=== PATIENT | female | born 1960 | race Caucasian/White ===

== ENCOUNTER 2016-11-25 16:28 | Inpatient (IN) | payer OTHER ==
[~2016-11-25] VITALS: Ht 157.5 cm; Wt 68.9 kg
[2016-11-25] MEDS ORDERED: fentaNYL INJECTION 100 MCG/2 ML AMP IVP STA ×2 (16:38→17:21)
[2016-11-25 16:43] LABS: BASOPHILS % (AUTO) 1 % (0-10); EOSINOPHILS # (AUTO) 0.1 10^3/uL (0.0-0.3); EOSINOPHILS % (AUTO) 1 % (0-10); LYMPHOCYTES # (AUTO) 3.2 X 10^3 (1.0-4.0); LYMPHOCYTES % (AUTO) 45 % (12-44); MEAN CORPUSCULAR HEMOGLOBIN 29 PG (25-34); MEAN CORPUSCULAR HGB CONC 34 G/DL (32-36); MEAN CORPUSCULAR VOLUME 84 FL (80-99); MONOCYTES # (AUTO) 0.5 X 10^3 (0.0-1.0); MONOCYTES % (AUTO) 7 % (0-12); NEUTROPHILS # (AUTO) 3.3 X 10^3 (1.8-7.8); NEUTROPHILS % (AUTO) 46 % (42-75); PLATELET COUNT 314 10^3/uL (130-400); RED BLOOD COUNT 5.06 10^6/uL (4.35-5.85); RED CELL DISTRIBUTION WIDTH 12.7 % (10.0-14.5); WHITE BLOOD COUNT 7.2 10^3/uL (4.3-11.0)
[2016-11-25 17:02] LABS: ALANINE AMINOTRANSFERASE 52 U/L (0-55); ALBUMIN 4.3 GM/DL (3.2-4.5); ANION GAP 16 MMOL/L (5-14); ASPARTATE AMINO TRANSFERASE 39 U/L (5-34); BILIRUBIN,TOTAL 0.4 MG/DL (0.1-1.0); BLOOD UREA NITROGEN 14 MG/DL (7-18); BUN/CREATININE RATIO 16; CALCIUM 9.8 MG/DL (8.5-10.1); CARBON DIOXIDE 19 MMOL/L (21-32); CHLORIDE 103 MMOL/L (98-107); CREATININE SERUM 0.86 MG/DL (0.60-1.30); GFR ESTIMATED > 60; GLUCOSE 383 MG/DL (70-105); POTASSIUM 4.5 MMOL/L (3.6-5.0); SODIUM 138 MMOL/L (135-145); TOTAL PROTEIN 7.3 GM/DL (6.4-8.2)
--- NOTE | 2016-11-25 17:06 | ED Fall/Injury ---
General Chief Complaint: Trauma-Non Activation Stated Complaint: FALL Nursing Triage Note: PT TO ED VIA EMS. PT WAS WORKING ON HOUSE WHEN SHE STEPPED ONTO THE PORCH, FALLING THROUGH. DEFORMITY NOTED TO LLE. PT DENIES HITTING HEAD. DENIES ANY OTHER INJURY. PT RECIEVED 100MCG FENTANYL AND 4 MG ZOFRAN PER EMS. BS 399 PER EMS. Source: patient, EMS Exam Limitations: no limitations (DARYL HAAS MD) History of Present Illness Time seen by provider: 16:27 Initial Comments Here by EMS with report of fall through a porch. She was working on a house that they own here in [place] when she was walking across the back porch carrying wood. She apparently felt through the porch and has an angulated deformity of the distal right lower extremity just above the ankle. Denies other injury. Tetanus is not up-to-date. EMS did initiate IV and gave 100 g of fentanyl for pain. Leg is splinted with a blanket splint. Location Injury Occurred: HOME Occurred: just prior to arrival (approximately 30 minutes ago) Severity: moderate Injuries/Pain Location: lower extremity Context: other Loss of Consciousness: no loss of consciousness Modifying Factors: Improves With Immobilization, Worse With Movement, Improves With Pain Medication Associated Symptoms (Fall): No Neck Pain, Trouble Walking (DARYL HAAS MD) Allergies and Home Medications Allergies Coded Allergies: codeine (Verified Allergy, Unknown, 11/25/16) erythromycin base (Verified Allergy, Unknown, 11/25/16) Home Medications Albuterol Sulfate 2.5 Mg/3 Ml Vial.neb, 2.5 INH INH TID, #150 (Reported) Apixaban 2.5 Mg Tablet, 2.5 MG PO BID for 14 Days Prescribed by: PAOLA MCNAMARA on 11/27/16 0930 Atorvastatin Calcium 10 Mg Tablet, 10 MG PO DAILY, #30 (Reported) Glimepiride 4 Mg Tablet, 4 MG PO DAILY, #30 (Reported) Hydrocodone/Acetaminophen 1 Each Tablet, 1-2 EA PO Q4H PRN for PAIN-MODERATE, # 56 Ref 0 Prescribed by: PAOLA MCNAMARA on 11/27/16 0930 Insulin Glargine,Hum.rec.anlog 100 Unit/1 Ml Insuln.pen, 10 UNITS SQ HS, #15 ( Reported) Lisinopril 10 Mg Tablet, 10 MG PO DAILY, #30 (Reported) Metformin HCl 1,000 Mg Tablet, 1,000 MG PO BID, #60 (Reported) Mometasone/Formoterol 13 Gm Hfa.aer.ad, 2 INH IH BID, #13 (Reported) Montelukast Sodium 10 Mg Tablet, 10 MG PO DAILY, #30 (Reported) Tramadol HCl 50 Mg Tablet, 50 MG PO Q6H PRN for PAIN-BREAKTHROUGH, #90 Ref 0 Take 1-2 PO q 6 hrs prn pain Prescribed by: PAOLA MCNAMARA on 11/27/16 0930 Constitutional: see HPI, No chills, No fever Eyes: No Symptoms Reported Ears, Nose, Mouth, Throat: no symptoms reported Respiratory: no symptoms reported Cardiovascular: no symptoms reported Gastrointestinal: no symptoms reported Genitourinary: no symptoms reported Musculoskeletal: see HPI, joint pain, muscle pain Skin: No change in color, lesions (abrasion to right knee) Psychiatric/Neurological: No Symptoms Reported, Denies Numbness, Denies Tingling, Denies Weakness (DARYL HAAS MD) Past Pjyvdgk-Nsnagw-Scwizl Hx Patient Social History Alcohol Use: Denies Use Recreational Drug Use: No Smoking Status: Never a Smoker Recent Foreign Travel: No Contact w/Someone Who Travel: No Recent Infectious Disease Expo: No Recent Hopitalizations: No (DARYL HAAS MD) Immunizations Up To Date Tetanus Booster (TDap): Unknown (DARYL HAAS MD) Surgeries HX Surgeries: Yes Surgeries: Section (DARYL HAAS MD) Respiratory Hx Respiratory Disorders: Yes Respiratory Disorders: Asthma (DARYL HAAS MD) Cardiovascular Hx Cardiac Disorders: No (DARYL HAAS MD) Neurological Hx Neurological Disorders: No Neurological Disorders: Stroke (DARYL HAAS MD) Genitourinary Hx Genitourinary Disorders: No (DARYL HAAS MD) Gastrointestinal Hx Gastrointestinal Disorders: No (DARYL HAAS MD) Musculoskeletal Hx Musculoskeletal Disorders: No (DARYL HAAS MD) Endocrine Hx Endocrine Disorders: Yes Endocrine Disorders: Diabetes, Non-Insulin dep (DARYL HAAS MD) HEENT HX ENT Disorders: No (DARYL HAAS MD) Cancer Hx Cancer: No (DARYL HAAS MD) Reviewed Nursing Assessment Reviewed/Agree w Nursing PMH: Yes (DARYL HAAS MD) Family Medical History Significant Family History: No Pertinent Family Hx (DARYL HAAS MD) Physical Exam Vital Signs Vital Sign - Last 12Hours 11/25/16 16:32 Pulse 86 Resp 22 B/P (MAP) 122/96 Pulse Ox 96 O2 Delivery Room Air (MYRNA SANTILLAN MD) Vital Signs Capillary Refill : Less Than 3 Seconds (DARYL HAAS MD) General Appearance: WD/WN, no apparent distress HEENT: PERRL/EOMI, pharynx normal Neck: full range of motion, supple Cardiovascular: regular rate, rhythm, no murmur Respiratory: lungs clear, normal breath sounds Gastrointestinal: non tender, soft Back: normal inspection, no CVA tenderness, no vertebral tenderness Extremities: pelvis stable, other (swelling and deformity to the distal right lower extremity just proximal to the ankle. Distal circulation and sensation intact. Able to move all toes on the right foot.) Neurologic/Psychiatric: alert, oriented x 3 Skin: normal color, warm/dry (DARYL HAAS MD) [place] Coma Score Best Eye Response: (4) Open Spontaneously Best Verbal Response: (5) Oriented Best Motor Response: (6) Obeys Commands (DARYL HAAS MD) Splinting and Joint Reduction : Location: right ankle Pre-Proc Neuro Vasc Exam: normal Post-Proc Neuro Vasc Exam: normal Onesimo wrap: Yes (to secure orthoglass) Hand-Made Type: orthoglass Splint Application: Short Leg (sugar tong) (CANDIE MARTE) Progress/Results/Core Measures Results/Orders Lab Results Laboratory Tests Test 11/25/16 16:35 Range/Units White Blood Count 7.2 4.3-11.0 10^3/uL Red Blood Count 5.06 4.35-5.85 10^6/uL Hemoglobin 14.5 11.5-16.0 G/DL Hematocrit 42 35-52 % Mean Corpuscular Volume 84 80-99 FL Mean Corpuscular Hemoglobin 29 25-34 PG Mean Corpuscular Hemoglobin Concent 34 32-36 G/DL Red Cell Distribution Width 12.7 10.0-14.5 % Platelet Count 314 130-400 10^3/uL Mean Platelet Volume 10.0 7.4-10.4 FL Neutrophils (%) (Auto) 46 42-75 % Lymphocytes (%) (Auto) 45 H 12-44 % Monocytes (%) (Auto) 7 0-12 % Eosinophils (%) (Auto) 1 0-10 % Basophils (%) (Auto) 1 0-10 % Neutrophils # (Auto) 3.3 1.8-7.8 X 10^3 Lymphocytes # (Auto) 3.2 1.0-4.0 X 10^3 Monocytes # (Auto) 0.5 0.0-1.0 X 10^3 Eosinophils # (Auto) 0.1 0.0-0.3 10^3/uL Basophils # (Auto) 0.0 0.0-0.1 10^3/uL Sodium Level 138 135-145 MMOL/L Potassium Level 4.5 3.6-5.0 MMOL/L Chloride Level 103 98-107 MMOL/L Carbon Dioxide Level 19 L 21-32 MMOL/L Anion Gap 16 H 5-14 MMOL/L Blood Urea Nitrogen 14 7-18 MG/DL Creatinine 0.86 0.60-1.30 MG/DL Estimat Glomerular Filtration Rate > 60 BUN/Creatinine Ratio 16 Glucose Level 383 H 70-105 MG/DL Calcium Level 9.8 8.5-10.1 MG/DL Total Bilirubin 0.4 0.1-1.0 MG/DL Aspartate Amino Transf (AST/SGOT) 39 H 5-34 U/L Alanine Aminotransferase (ALT/SGPT) 52 0-55 U/L Alkaline Phosphatase 90 40-136 U/L Total Protein 7.3 6.4-8.2 GM/DL Albumin 4.3 3.2-4.5 GM/DL (MYRNA SANTILLAN MD) Vital Signs/I&O Vital Sign - Last 12Hours 11/25/16 16:32 Pulse 86 Resp 22 B/P (MAP) 122/96 Pulse Ox 96 O2 Delivery Room Air (MYRNA SANTILLAN MD) Blood Pressure Mean: 105 Progress Note : Progress Note Seen and evaluated on arrival by EMS. IV established by EMS. Labs, x-ray right lower extremity and fentanyl 50 g IV ordered. Monitor patient. 1710 x- rays noted. Case discussed with Dr. Santillan. He is actually in route to this facility now and will see the patient and approximately 20 minutes. This was discussed with the patient and she was very appreciative. She is having return of pain. Fentanyl 50 g IV ordered. Her last by mouth intake was at 1330 today. 1725: Dr. Santillan called back. He has requested vancomycin 1 g IV and Ancef 2 g IV and consent for open reduction internal fixation of the right tib- fib. He will be here in just a few minutes. Patient informed and agrees and is appreciative. Patient is from [facility] and is appreciative that the orthopedic physician is with [address] 1730: Dr. Santillan called back. They do not have the equipment needed for the surgery tonight so he will take her to the OR tomorrow. He will admit the patient. The request medicine consult. This was placed. Dr. Denson accepts consult and request cardiology consult and this was placed. Dr. Lomeli accepts cardiology consult. Patient more comfortable now. We did hold the antibiotics until tomorrow. Admit, inpatient status. Patient and family agree with plan. (DARYL HAAS MD) Diagnostic Imaging Diagonstic Imaging: Xray Plain Films/CT/US/NM/MRI: leg Comments VIA [facility]. [place], [place] NAME: ROBERTO CARTAGENA [facility] REC#: [id number] PT STATUS: REG ER : 1960 PHYSICIAN: DARYL HAAS MD ADMIT DATE: 11/25/16/ER Draft Date of Exam:11/25/16 TIBIA/FIBULA, RIGHT, 2 VIEWS INDICATION: Fall. Injury. COMPARISON: None. EXAMINATION: Four radiographic views of the right tibia and fibula were obtained. FINDINGS: Severely comminuted acute fractures of the distal tibia and fibula. There is mild displacement of the fracture fragments. There is also mild abnormal lateral angulation of approximately 30 degrees. There is no appreciable intra-articular extension. Included portions of distal femur are intact. The knee joint is maintained. No unexpected radiopaque foreign bodies are seen. IMPRESSION: Acute mildly displaced severely comminuted fractures of the distal right tibia and fibula. Dictated on workstation # [id number] Dict: 11/25/16 1704 Trans: 11/25/16 1708 [facility] [id number] Interpreted by: PRETTY LUCAS Electronically signed by: Reviewed: Reviewed by Me (DARYL HAAS MD) Departure Communication Time/Spoke to Admitting Phy: 17:10 Time/Spoke to Consulting Physi: 17:32 (DARYL HAAS MD) Impression Impression: Primary Impression: Fracture of right tibia and fibula Qualified Codes: S82.201A - Unspecified fracture of shaft of right tibia, initial encounter for closed fracture; S82.401A - Unspecified fracture of shaft of right fibula, initial encounter for closed fracture Disposition: ADMITTED INPATIENT Condition: Stable Admissions Decision to Admit Reason: Admit from ER (Trauma) Decision to Admit/Date: Nov 25, 2016 Time/Decision to Admit Time: 17:30 (DARYL HAAS MD) Departure-Patient Inst. Referrals: NO,LOCAL PHYSICIAN (PCP/Family) Primary Care Physician Scripts Tramadol HCl (Tramadol HCl) 50 Mg Tablet 50 MG PO Q6H Y for PAIN-BREAKTHROUGH, #90 TAB 0 Refills Take 1-2 PO q 6 hrs prn pain Prov: PAOLA MCNAMARA 11/27/16 Hydrocodone/Acetaminophen (Hydrocodon-Acetaminophn 10-325) 1 Each Tablet 1-2 EA PO Q4H Y for PAIN-MODERATE, #56 TAB 0 Refills Prov: PAOLA MCNAMARA 11/27/16 Apixaban (Eliquis) 2.5 Mg Tablet 2.5 MG PO BID for 14 Days, TAB Prov: PAOLA MCNAMARA 11/27/16 DARYL HAAS MD Nov 25, 2016 17:06 MYRNA SANTILLAN MD Nov 25, 2016 18:03 CANDIE MARTE Nov 28, 2016 12:27
--- NOTE | 2016-11-25 17:09 | Diagnostic Imaging Report ---
INDICATION: Fall. Injury. COMPARISON: None. EXAMINATION: Four radiographic views of the right tibia and fibula were obtained. FINDINGS: Severely comminuted acute fractures of the distal tibia and fibula. There is mild displacement of the fracture fragments. There is also mild abnormal lateral angulation of approximately 30 degrees. There is no appreciable intra-articular extension. Included portions of distal femur are intact. The knee joint is maintained. No unexpected radiopaque foreign bodies are seen. IMPRESSION: Acute mildly displaced severely comminuted fractures of the distal right tibia and fibula. Dictated by: Dictated on workstation # [id number]
[2016-11-25] MEDS ORDERED: ceFAZolin 2 GM/50 ML NS 50 ML IV ONE (17:30)
[2016-11-25] MEDS ORDERED: VANCOMYCIN INJECTION 1,000 MG in NS (IVPB) 250 ML IV ONE (17:30)
[2016-11-25] MEDS ORDERED: inSUlin (REGULAR) HUMAN 1 UNIT/0.01 ML (CHARGE PER UNIT) IV STA (17:39)
[2016-11-25] MEDS ORDERED: morphine INJ 10 MG/ML 1ML (SYR OR VIAL) IVP STA (17:50)
[2016-11-25 20:00] VITALS: BP 139/79
[2016-11-25] MEDS: NS IV 1000 ML 1,000 ML IV SCH (20:26)
[2016-11-25] MEDS: morphine INJ 10 MG/ML 1ML (SYR OR VIAL) IVP PRN ×2 (20:29→23:37)
[2016-11-25] MEDS ORDERED: MEPERIDINE (DEMEROL) INJ 100 MG/ML IVP PRN (21:30)
[2016-11-25] MEDS ORDERED: PROMETHAZINE INJ 25 MG/ML (PHENERGAN) AMP IM PRN (21:30)
[2016-11-25] MEDS ORDERED: MEPERIDINE (DEMEROL) INJ 100 MG/ML IM PRN (22:30)
[2016-11-26] VITALS (7 sets, daily range): BP systolic 119–148; BP diastolic 68–80
[2016-11-26] MEDS: morphine INJ 10 MG/ML 1ML (SYR OR VIAL) IVP PRN ×3 (05:39→09:42)
[2016-11-26] MEDS: NS IV 1000 ML 1,000 ML IV SCH (05:39)
[2016-11-26 06:40] LABS: BASOPHILS % (AUTO) 0 % (0-10); EOSINOPHILS # (AUTO) 0.1 10^3/uL (0.0-0.3); EOSINOPHILS % (AUTO) 1 % (0-10); LYMPHOCYTES # (AUTO) 3.6 X 10^3 (1.0-4.0); LYMPHOCYTES % (AUTO) 40 % (12-44); MEAN CORPUSCULAR HEMOGLOBIN 29 PG (25-34); MEAN CORPUSCULAR HGB CONC 33 G/DL (32-36); MEAN CORPUSCULAR VOLUME 86 FL (80-99); MEAN PLATELET VOLUME 9.6 FL (7.4-10.4); MONOCYTES # (AUTO) 0.6 X 10^3 (0.0-1.0); MONOCYTES % (AUTO) 7 % (0-12); NEUTROPHILS # (AUTO) 4.8 X 10^3 (1.8-7.8); NEUTROPHILS % (AUTO) 52 % (42-75); PLATELET COUNT 284 10^3/uL (130-400); RED BLOOD COUNT 4.49 10^6/uL (4.35-5.85); RED CELL DISTRIBUTION WIDTH 12.7 % (10.0-14.5); WHITE BLOOD COUNT 9.1 10^3/uL (4.3-11.0)
[2016-11-26 07:03] LABS: ALANINE AMINOTRANSFERASE 43 U/L (0-55); ALBUMIN 3.7 GM/DL (3.2-4.5); ANION GAP 11 MMOL/L (5-14); ASPARTATE AMINO TRANSFERASE 33 U/L (5-34); BILIRUBIN,TOTAL 0.6 MG/DL (0.1-1.0); BLOOD UREA NITROGEN 13 MG/DL (7-18); BUN/CREATININE RATIO 20; CALCIUM 8.9 MG/DL (8.5-10.1); CARBON DIOXIDE 21 MMOL/L (21-32); CHLORIDE 106 MMOL/L (98-107); CREATININE SERUM 0.65 MG/DL (0.60-1.30); GFR ESTIMATED > 60; GLUCOSE 103 MG/DL (70-105); POTASSIUM 4.1 MMOL/L (3.6-5.0); SODIUM 138 MMOL/L (135-145); TOTAL PROTEIN 6.3 GM/DL (6.4-8.2)
[2016-11-26] MEDS ORDERED: LACTATED RINGERS 1,000 ML IV ONE (07:20)
[2016-11-26] MEDS ORDERED: proPOfol 200 MG/20 ML (DIPRIVAN) VIAL IV ONE (07:20)
[2016-11-26] MEDS ORDERED: ROCURONIUM 50 MG/5 ML (ZEMURON) VIAL IV ONE (07:20)
[2016-11-26] MEDS ORDERED: LIDOCAINE PF 2% 5 ML (XYLOCAINE) VIAL ONE (07:20)
[2016-11-26] MEDS ORDERED: MIDAZOLAM 2 MG/2 ML (VERSED) VIAL ONE (07:21)
[2016-11-26] MEDS ORDERED: fentaNYL INJECTION 250 MCG/5 ML AMP ONE (07:21)
[2016-11-26] MEDS ORDERED: ceFAZolin 1,000 MG (ANCEF) VIAL ONE (08:02)
[2016-11-26] MEDS ORDERED: VANCOMYCIN 1000 MG/VIAL ONE (08:03)
[2016-11-26] MEDS ORDERED: ceFAZolin 2 GM/50 ML NS 50 ML IV ONE (08:15)
[2016-11-26] MEDS ORDERED: VANCOMYCIN INJECTION 1,000 MG in NS (IVPB) 250 ML IV ONE ×2 (08:15→21:15)
[2016-11-26] MEDS ORDERED: ONDANSETRON 4 MG/2 ML (SDV) Z0FRAN ONE ×2 (08:25→09:09)
[2016-11-26] MEDS ORDERED: DEXAMETHASONE PF 10 MG/ML (DECADRON) VIAL ONE (08:25)
[2016-11-26] MEDS ORDERED: SUCCINYLCHOLINE INJ 100 MG/5 ML SYR ONE (08:25)
[2016-11-26] MEDS ORDERED: SEVOFLURANE (ULTANE) 15 ML INHAL SOLN ONE (08:25)
[2016-11-26] MEDS ORDERED: PHENYLEPHRINE 100 MCG/ML 10 ML (ANESTHESIA) SYR ONE (08:36)
[2016-11-26] MEDS ORDERED: MEPERIDINE (DEMEROL) INJ 50 MG/ML ONE (09:08)
[2016-11-26] MEDS ORDERED: NS IV 1000 ML 1,000 ML IV SCH (09:08)
[2016-11-26] MEDS ORDERED: fentaNYL INJECTION 100 MCG/2 ML AMP ONE (09:08)
[2016-11-26] MEDS ORDERED: HYDROmorphone (DILAUDID) 2 MG/ML VIAL ONE (09:08)
[2016-11-26] MEDS ORDERED: diphenhydrAMINE 25 MG TAB (BENADRYL) PO PRN (09:15)
[2016-11-26] MEDS ORDERED: NALOXONE 0.4 MG/ML 1 ML (NARCAN) VIAL IV PRN (09:15)
[2016-11-26] MEDS ORDERED: fentaNYL INJECTION 100 MCG/2 ML AMP IVP PRN (09:15)
[2016-11-26] MEDS ORDERED: diphenhydrAMINE 50 MG/ML INJ (BENADRYL) IV PRN (09:15)
[2016-11-26] MEDS ORDERED: METOCLOPRAMIDE INJ 10 MG/2 ML (REGLAN) IV PRN ×2 (09:15)
[2016-11-26] MEDS ORDERED: ACETAMINOPHEN 325 MG TABLET/CAPLET (TYLENOL) PO PRN (09:15)
[2016-11-26] MEDS ORDERED: ONDANSETRON 4 MG/2 ML (SDV) Z0FRAN IV PRN ×2 (09:15)
[2016-11-26] MEDS ORDERED: ANTACID SUSP 30 ML UDC (MYLANTA) PO PRN (09:15)
[2016-11-26] MEDS ORDERED: LACTATED RINGERS 1,000 ML IV SCH (09:30)
[2016-11-26] MEDS ORDERED: ONDANSETRON 4 MG/2 ML (SDV) Z0FRAN IVP PRN (09:30)
[2016-11-26] MEDS ORDERED: inSUlin (REGULAR) HUMAN 1 UNIT/0.01 ML (CHARGE PER UNIT) SC SCH ×2 (09:30→16:00)
--- NOTE | 2016-11-26 09:37 | Progress Note-Post Operative ---
Post-Operative Progess Note Surgeon (s)/Blueprint Assembler (s) Surgeon MYRNA PEREZ MD Blueprint Assembler: Amos Rogers PA-C Pre-Operative Diagnosis Acute Close Right Distal tib/fib fracture just above right ankle Post-Operative Diagnosis same Procedure & Operative Findings Date of Procedure 11/26/16 Procedure Performed/Findings Reduction and Delta Frame external fixation right distal tib/fib fx Anesthesia Type GETA Estimated Blood Loss Estimated blood loss (mL): MINIMAL Specimens/Packing Specimens Removed NONE Packing: NONE DICTATION WORK NUMBER [id number] MYRNA PEREZ MD Nov 26, 2016 09:37
--- NOTE | 2016-11-26 09:58 | Diagnostic Imaging Report ---
INDICATION: Fluoroscopy for patient's ankle. FINDINGS: 39 seconds of intraoperative fluoroscopy was performed for patient's ankle. External fixation devices are present. IMPRESSION: Intraoperative fluoroscopy. Dictated by: Dictated on workstation # [id number]
--- NOTE | 2016-11-26 10:48 | Consultation-Cardiology ---
HPI-Cardiology Cardiology Consultation Date of Consultation 11/26/16 Date of Admission Time Seen by Provider: 10:44 Indication: hypertension HPI 55 years old lady with history of hypertension, hyperlipidemia and diabetes mellitus, sustained a fall resulted in ankle fracture. Denied any chest pain, no shortness of breath, no syncope or near syncopal episodes no claudications. Underwent her surgery earlier this morning, recovering well, feeling better. denied any active chest pain Home Medications & Allergies Allergies: Coded Allergies: codeine (Verified Allergy, Unknown, 11/25/16) erythromycin base (Verified Allergy, Unknown, 11/25/16) Home Medication List Reviewed: Yes HDG-Gnzxgy-Rreohy Hx Patient Social History Alcohol Use: Denies Use Recreational Drug Use: No Smoking Status: Never a Smoker Recent Foreign Travel: No Recent Infectious Disease Expo: No Recent Hopitalizations: No Physical Abuse Screen: No Sexual Abuse: No Immunizations Up To Date Tetanus Booster (TDap): Unknown Past Medical History past medical history as discussed below Family Medical History Significant Family History: No Pertinent Family Hx Family Medical Hx noncontributory to her current condition Family History: Patient reports no known family medical history. Constitutional: see HPI, malaise EENTM: no symptoms reported, see HPI Respiratory: no symptoms reported, see HPI Cardiovascular: no symptoms reported, see HPI Gastrointestinal: no symptoms reported, see HPI Genitourinary: see HPI Musculoskeletal: see HPI, joint pain, other (ankle fracture) Skin: no symptoms reported, see HPI Psychiatric/Neurological: No Symptoms Reported, See HPI Reviewed Test Results Reviewed Test Results Lab Laboratory Tests Test 11/25/16 16:35 11/26/16 06:30 Range/Units White Blood Count 7.2 9.1 4.3-11.0 10^3/uL Red Blood Count 5.06 4.49 4.35-5.85 10^6/uL Hemoglobin 14.5 12.9 11.5-16.0 G/DL Hematocrit 42 39 35-52 % Mean Corpuscular Volume 84 86 80-99 FL Mean Corpuscular Hemoglobin 29 29 25-34 PG Mean Corpuscular Hemoglobin Concent 34 33 32-36 G/DL Red Cell Distribution Width 12.7 12.7 10.0-14.5 % Platelet Count 314 284 130-400 10^3/uL Mean Platelet Volume 10.0 9.6 7.4-10.4 FL Neutrophils (%) (Auto) 46 52 42-75 % Lymphocytes (%) (Auto) 45 H 40 12-44 % Monocytes (%) (Auto) 7 7 0-12 % Eosinophils (%) (Auto) 1 1 0-10 % Basophils (%) (Auto) 1 0 0-10 % Neutrophils # (Auto) 3.3 4.8 1.8-7.8 X 10^3 Lymphocytes # (Auto) 3.2 3.6 1.0-4.0 X 10^3 Monocytes # (Auto) 0.5 0.6 0.0-1.0 X 10^3 Eosinophils # (Auto) 0.1 0.1 0.0-0.3 10^3/uL Basophils # (Auto) 0.0 0.0 0.0-0.1 10^3/uL Sodium Level 138 138 135-145 MMOL/L Potassium Level 4.5 4.1 3.6-5.0 MMOL/L Chloride Level 103 106 98-107 MMOL/L Carbon Dioxide Level 19 L 21 21-32 MMOL/L Anion Gap 16 H 11 5-14 MMOL/L Blood Urea Nitrogen 14 13 7-18 MG/DL Creatinine 0.86 0.65 0.60-1.30 MG/DL Estimat Glomerular Filtration Rate > 60 > 60 BUN/Creatinine Ratio 16 20 Glucose Level 383 H 103 70-105 MG/DL Calcium Level 9.8 8.9 8.5-10.1 MG/DL Total Bilirubin 0.4 0.6 0.1-1.0 MG/DL Aspartate Amino Transf (AST/SGOT) 39 H 33 5-34 U/L Alanine Aminotransferase (ALT/SGPT) 52 43 0-55 U/L Alkaline Phosphatase 90 74 40-136 U/L Total Protein 7.3 6.3 L 6.4-8.2 GM/DL Albumin 4.3 3.7 3.2-4.5 GM/DL Physical Exam Vital Signs Vital Sign - Last 12Hours 11/25/16 11/25/16 16:32 20:00 Temp 96.9 Pulse 86 Resp 22 B/P (MAP) 122/96 Pulse Ox 96 O2 Delivery Room Air Capillary Refill : Less Than 3 SecondsLess Than 3 Seconds General Appearance: WD/WN, Mild Distress Eyes: Bilateral Eye EOMI, Bilateral Eye Normal Inspection, Bilateral Eye PERRL HEENT: PERRL/EOMI, TMs Normal, Normal ENT Inspection, Pharynx Normal Neck: Full Range of Motion, Normal Inspection, Non Tender, Supple, Carotid Bruit Respiratory: Chest Non Tender, Lungs Clear, Normal Breath Sounds, No Accessory Muscle Use, No Respiratory Distress Cardiovascular: Regular Rate, Rhythm, No Edema, No Gallop, No JVD, No Murmur, Normal Peripheral Pulses Gastrointestinal: Normal Bowel Sounds, No Organomegaly, No Pulsatile Mass, Non Tender, Soft Back: Normal Inspection Extremity: Normal Capillary Refill, Other (right ankle is immobilized) Neurologic/Psychiatric: Alert, Oriented x3, No Motor/Sensory Deficits, Normal Mood/Affect Skin: Normal Color, Warm/Dry Lymphatic: No Adenopathy A/P-Cardiology Admission Diagnosis Right ankle fracture Hypertension Hyperlipidemia Diabetes mellitus Assessment/Plan Right ankle fracture postoperative day number 0 recovering well. Continue to monitor Hypertension, restart lisinopril and monitor blood pressure Hyperlipidemia, has been on Lipitor, restart and monitor Diabetes mellitus, followed and managed by primary care physician Bronchial asthma, clinically stable Clinical Quality Measures DVT/VTE Risk/Contraindication: Risk Factor Score Per Nursin RFS Level Per Nursing on Admit: 4+=Very High JESSICA FELIX MD Nov 26, 2016 10:48
[2016-11-26] MEDS ORDERED: METF1000 PO (10:57)
[2016-11-26] MEDS ORDERED: GLIM4TAB PO (10:57)
[2016-11-26] MEDS ORDERED: ATOR10TA66 PO (11:02)
[2016-11-26] MEDS ORDERED: LISI10TA2 PO (11:02)
[2016-11-26] MEDS ORDERED: MOME13HF IH (11:02)
[2016-11-26] MEDS ORDERED: MONT10TA24 PO (11:02)
[2016-11-26] MEDS ORDERED: INSU100I10 SQ (11:08)
[2016-11-26] MEDS ORDERED: ALBU2.5V4 INH (11:08)
[2016-11-26] MEDS: 1/2 NS IV SOLUTION 1,000 ML IV SCH ×3 (11:13→21:22)
[2016-11-26] MEDS ORDERED: PATIENT MAY USE OWN MEDS, ALL MC SCH (11:30)
[2016-11-26] MEDS: ATORVASTATIN 10 MG (LIPITOR) TABLET PO SCH (11:39)
--- NOTE | 2016-11-26 11:49 | Consultation-Hospitalist ---
HPI History of Present Illness: HPI/Chief Complaint CC: Medical management following right tib-fib fracture repair uncomplicated per Dr Santillan HPI: This is a 55yoWF clinic patient of Dr Avilez in [place], [place] who was fixing up a house in [place] getting it ready to be sold when she feel through the boards on the porch and sustained a right tibia-fibula fracture. She had an uncomplicated surgery this morning and currently she is experiencing pain. Her family is at the bedside. She checks her sugar daily at home and I have reconciled all of her home meds and restarted most of them and added accuchecks. 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 Source: patient, RN/MD Exam Limitations: no limitations Date Seen 11/26/16 Attending Physician Haris Santillan MD PCP No,Local Physician Referring Physician Date of Admission Nov 25, 2016 at 17:44 Home Medications & Allergies Home Medications Reviewed patient Home Medication Reconciliation Form Allergies Allergies Coded Allergies codeine (Verified Allergy, Unknown, 11/25/16) erythromycin base (Verified Allergy, Unknown, 11/25/16) Past Wxhefcd-Iuuvhn-Hgpjrk Hx Patient Social History Employed/Student: employed Alcohol Use: Denies Use Recreational Drug Use: No Smoking Status: Never a Smoker Physical Abuse Screen: No Sexual Abuse: No Recent Foreign Travel: No Contact w/other who traveled: No Recent Hopitalizations: No Recent Infectious Disease Expo: No Immunizations Up To Date Tetanus Booster (TDap): Unknown Seasonal Allergies Seasonal Allergies: No Surgeries HX Surgeries: Yes Surgeries: Section Respiratory Hx Respiratory Disorders: Yes Respiratory Disorders: Asthma Cardiovascular Hx Cardiovascular Disorders: Yes Cardiac Disorders: High Cholesterol, Hypertension Neurological Hx Neurological Disorders: No Neurological Disorders: Stroke Genitourinary Hx Genitourinary Disorders: Yes Genitourinary Disorders: Kidney Stones Gastrointestinal Hx Gastrointestinal Disorders: Yes Gastrointestinal Disorders: Gastroesophageal Reflux Musculoskeletal Hx Musculoskeletal Disorders: Yes Musculoskeletal Disorders: Arthritis Endocrine Hx Endocrine Disorders: Yes Endocrine Disorders: Diabetes, Non-Insulin dep HEENT HX ENT Disorders: No Cancer Hx Cancer: No Psychosocial Hx Psychiatric Problems: No Blood Transfusions Adverse Reaction to a Blood Tr: No Reviewed Nursing Assessment Reviewed/Agree w Nursing PMH: Yes Family Medical History Significant Family History: No Pertinent Family Hx Family Hx: Patient reports no known family medical history. Review of Systems Constitutional: see HPI EENTM: no symptoms reported Respiratory: no symptoms reported Cardiovascular: no symptoms reported Gastrointestinal: no symptoms reported Genitourinary: no symptoms reported Musculoskeletal: joint pain (right ankle) Skin: no symptoms reported Psychiatric/Neurological: No Symptoms Reported All Other Systems Reviewed Negative Unless Noted: Yes Physical Exam Physical Exam Vital Signs Vital Sign - Last 12Hours 11/25/16 11/25/16 16:32 20:00 Temp 96.9 Pulse 86 Resp 22 B/P (MAP) 122/96 Pulse Ox 96 O2 Delivery Room Air Capillary Refill : Less Than 3 SecondsLess Than 3 Seconds General Appearance: WD/WN, Chronically ill, Mild Distress (due to pain of recent surgery) Eyes: Bilateral Eye Normal Inspection, Bilateral Eye PERRL HEENT: PERRL/EOMI, Normal ENT Inspection, Pharynx Normal Neck: Full Range of Motion, Normal Inspection, Non Tender, Supple, Carotid Bruit Respiratory: Chest Non Tender, Lungs Clear, Normal Breath Sounds, No Accessory Muscle Use, No Respiratory Distress Cardiovascular: Regular Rate, Rhythm, No Edema, No Gallop, No JVD, No Murmur, Normal Peripheral Pulses Gastrointestinal: Normal Bowel Sounds, No Organomegaly, No Pulsatile Mass, Non Tender, Soft Back: Normal Inspection, No CVA Tenderness, No Vertebral Tenderness Extremity: Normal Capillary Refill, Normal Inspection, Normal Range of Motion ( except right leg due to surgery), Non Tender, No Calf Tenderness, No Pedal Edema Neurologic/Psychiatric: Alert, Oriented x3, No Motor/Sensory Deficits, Normal Mood/Affect Skin: Normal Color, Warm/Dry Lymphatic: No Adenopathy Results Results/Procedures Lab Laboratory Tests 11/25/16 16:35 11/26/16 06:30 Assessment/Plan Admission Diagnosis Assessment: Acute right tibia-fibula fracture s/p uncomplicated repair per Dr Jacque FORTUNE Asthma HTN Assessment and Plan Plan: Monitor sugar closely Reconciled all of her home meds Pain meds DVT Px orders per protocol Will follow with you Clinical Quality Measures DVT/VTE Risk/Contraindication: Risk Factor Score Per Nursin RFS Level Per Nursing on Admit: 4+=Very High SHOLA BEARD DO Nov 26, 2016 11:49
[2016-11-26] MEDS: RT-ALBUTEROL SULF 2.5 MG/3 ML PRE-MIX VIAL INH SCH ×2 (14:44→19:02)
[2016-11-26] MEDS: HYDROcodone/APAP 10 MG/325 MG (LORTAB) TAB PO PRN ×2 (15:46→19:59)
[2016-11-26] MEDS: inSUlin ASPART (NovoLOG) 1 UNIT/0.01 ML (CHARGE PER UNIT) SC SCH ×2 (16:00→21:15)
[2016-11-26] MEDS: METFORMIN 1000 MG PO SCH (16:30)
[2016-11-26] MEDS: DULERA IH SCH (19:07)
[2016-11-26] MEDS: DOCUSATE SODIUM 100 MG (COLACE) CAP PO SCH (20:04)
[2016-11-26] MEDS ORDERED: inSUlin DETERMIR 1 UNIT/0.01 ML (LEVEMIR) CHARGE PER UNIT SQ SCH (21:00)
[2016-11-27] VITALS: BP 135/70
[2016-11-27] MEDS: HYDROcodone/APAP 10 MG/325 MG (LORTAB) TAB PO PRN ×2 (03:45→12:05)
[2016-11-27 04:00] VITALS: BP 162/79
[2016-11-27] MEDS: inSUlin ASPART (NovoLOG) 1 UNIT/0.01 ML (CHARGE PER UNIT) SC SCH ×2 (05:06→11:13)
[2016-11-27] MEDS: METFORMIN 1000 MG PO SCH (06:40)
[2016-11-27 07:04] LABS: ANION GAP 11 MMOL/L (5-14); BLOOD UREA NITROGEN 5 MG/DL (7-18); BUN/CREATININE RATIO 8; CALCIUM 8.6 MG/DL (8.5-10.1); CARBON DIOXIDE 22 MMOL/L (21-32); CHLORIDE 104 MMOL/L (98-107); CREATININE SERUM 0.62 MG/DL (0.60-1.30); GFR ESTIMATED > 60; GLUCOSE 132 MG/DL (70-105); POTASSIUM 3.9 MMOL/L (3.6-5.0); SODIUM 137 MMOL/L (135-145)
[2016-11-27] MEDS: RT-ALBUTEROL SULF 2.5 MG/3 ML PRE-MIX VIAL INH SCH (07:27)
[2016-11-27] MEDS: DULERA IH SCH (07:34)
[2016-11-27 08:00] VITALS: BP 147/65
--- NOTE | 2016-11-27 08:27 | Cardiology Progress Note ---
Subjective Time Seen by Provider: 08:26 Subjective/Events-last exam Patient in bed. C/o right leg pain. Denies any CP or dyspnea. Review of Systems General: No Night Sweats, No Fatigue, No Malaise HEENT: No Visual Changes, No Dysphasia Pulmonary: No Dyspnea, No Cough Cardiovascular: No: Chest Pain, Orthopnea, Palpitations Gastrointestinal: No: Abdominal Pain, Nausea, Vomiting Genitourinary: No Dysuria, No Frequency Musculoskeletal: No: back pain, neck pain Neurological: No: Change in speech, Confusion, Numbness, Weakness Objective-Cardiology Exam Last Set of Vital Signs Vital Signs 11/26/16 11/27/16 11/27/16 10:15 04:00 07:30 Temp 97.9 Pulse 80 Resp 18 B/P (MAP) 162/79 Pulse Ox 94 O2 Delivery Room Air O2 Flow Rate 2.00 Capillary Refill : Less Than 3 SecondsLess Than 3 Seconds I&O Intake and Output 11/27/16 00:00 Intake Total 1210 ml Output Total 400 ml Balance 810 ml Intake Oral 460 ml IV Total 750 ml Output Urine Total 400 ml # Voids 2 General: Alert, Oriented X3 HEENT: Atraumatic Neck: Supple Lungs: Clear to Auscultation Heart: Regular Rate, Normal S1, Normal S2 Abdomen: Normal Bowel Sounds, Soft, No Tenderness Extremities: No Clubbing, No Cyanosis, Normal Pulses, Other (trace edema RLE) Skin: No Rashes, No Significant Lesion Neuro: Normal Speech, Cranial Nerves 3-12 NL Psych/Mental Status: Mental Status NL, Mood NL Results Lab Laboratory Tests 11/27/16 06:30 A/P-Cardiology Admission Diagnosis Right ankle fracture Hypertension Hyperlipidemia Diabetes mellitus Assessment/Plan Right ankle fracture postoperative day number 1 recovering well. Continue to monitor Hypertension, restart lisinopril and monitor blood pressure Hyperlipidemia, has been on Lipitor, restart and monitor Diabetes mellitus, followed and managed by primary care physician Bronchial asthma, clinically stable Clinical Quality Measures DVT/VTE Risk/Contraindication: Risk Factor Score Per Nursin RFS Level Per Nursing on Admit: 4+=Very High ROWAN BALLARD Nov 27, 2016 08:27
[2016-11-27] MEDS: DOCUSATE SODIUM 100 MG (COLACE) CAP PO SCH (08:40)
[2016-11-27] MEDS: ATORVASTATIN 10 MG (LIPITOR) TABLET PO SCH (08:43)
[2016-11-27] MEDS ORDERED: SENNA W/DOCUSATE (SENOKOT S) TABLET PO SCH (09:00)
[2016-11-27] MEDS ORDERED: APIXABAN 2.5 MG (ELIQUIS) TABLET PO SCH (09:00)
[2016-11-27] MEDS ORDERED: lisINopril 10 MG (PRINIVIL) TAB PO SCH (09:00)
[2016-11-27] MEDS ORDERED: GLIMEPIRIDE 4 MG (AMARYL) TAB PO SCH (09:00)
[2016-11-27] MEDS ORDERED: MONTELUKAST 10 MG (SINGULAIR) TAB PO SCH (09:00)
--- NOTE | 2016-11-27 09:22 | Cardiology Progress Note ---
Subjective Date Seen by Provider: Nov 27, 2016 Time Seen by Provider: 09:21 Subjective/Events-last exam patient is still having pain in her ankle at the surgical site, starting back on her blood pressure medications today. Review of Systems General: No Chills, No Night Sweats, No Fatigue, No Malaise, No Appetite, No Other HEENT: No Head Aches, No Visual Changes, No Eye Pain, No Ear Pain, No Dysphasia , No Sinus Congestion, No Post Nasal Drip, No Sore Throat, No Other Pulmonary: No Dyspnea, No Cough, No Pleuritic Chest Pain, No Other Cardiovascular: No: Chest Pain, Edema, Lt Headedness, Orthopnea, Other, Palpitations, Paroxysmal Noc. Dyspnea Objective-Cardiology Exam Last Set of Vital Signs Vital Signs 11/26/16 11/27/16 11/27/16 10:15 08:00 08:55 Temp 99.7 Pulse 81 Resp 16 B/P (MAP) 147/65 Pulse Ox 94 O2 Delivery Room Air O2 Flow Rate 2.00 Capillary Refill : Less Than 3 SecondsLess Than 3 Seconds I&O Intake and Output 11/27/16 00:00 Intake Total 1210 ml Output Total 400 ml Balance 810 ml Intake Oral 460 ml IV Total 750 ml Output Urine Total 400 ml # Voids 2 General: Alert, Oriented X3 HEENT: Atraumatic Neck: Supple Lungs: Clear to Auscultation Heart: Regular Rate, Normal S1, Normal S2 Abdomen: Normal Bowel Sounds, Soft, No Tenderness Extremities: No Clubbing, No Cyanosis, Normal Pulses, Other (trace edema RLE) Skin: No Rashes, No Significant Lesion Neuro: Normal Speech, Cranial Nerves 3-12 NL Psych/Mental Status: Mental Status NL, Mood NL Results Lab Laboratory Tests 11/27/16 06:30 A/P-Cardiology Admission Diagnosis Right ankle fracture Hypertension Hyperlipidemia Diabetes mellitus Assessment/Plan Right ankle fracture postoperative day number 1 recovering well. Continue to monitor Hypertension, restart lisinopril and monitor blood pressure Hyperlipidemia, has been on Lipitor, restart and monitor Diabetes mellitus, followed and managed by primary care physician Bronchial asthma, clinically stable Clinical Quality Measures DVT/VTE Risk/Contraindication: Risk Factor Score Per Nursin RFS Level Per Nursing on Admit: 4+=Very High JESSICA FELIX MD Nov 27, 2016 09:22
[2016-11-27] MEDS ORDERED: HYDR-3820 PO (09:30)
[2016-11-27] MEDS ORDERED: APIX2.5T PO (09:30)
[2016-11-27] MEDS ORDERED: TRAM50TA2 PO (09:30)
--- NOTE | 2016-11-27 09:32 | HISTORY AND PHYSICAL ---
CHIEF COMPLAINT: Right distal tib-fib fracture. HISTORY: Ms. Rubi is a 57-year-old female who was walking across a wooden porch, fell through the porch and sustaining this fracture. She is from [place], [place]. She presented to [facility] emergency room, was seen and evaluated Dr. Patterson who consulted orthopedics for definitive care. PAST MEDICAL HISTORY: 1. Diabetes. 2. History of stroke. 3. Asthma. PAST SURGICAL HISTORY: . ALLERGIES: 1. Codeine 2. Erythromycin MEDICATIONS: Please see ER consult for list of medications. 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 FAMILY HISTORY: Diabetes. REVIEW OF SYSTEMS: Markedly elevated blood sugars 388 in the emergency room tonight. Denies chest pain, shortness of breath, wheezing, PHYSICAL EXAM: VITAL SIGNS: Pulse 86, respirations 22, BP 122/96. GENERAL: In general, well or well nourished female in no apparent distress, alert and oriented to person, place and time. HEENT EXAM: PERRLA, EOMI. NECK: No JVD, lymphadenopathy or thyromegaly. LUNGS: Clear. HEART: Regular. ABDOMEN: Benign. UPPER EXTREMITIES: No complaints. LOWER EXTREMITIES: The right tib-fib is closed with swelling at the fracture site. The skin is intact. Pulses are palpable in dorsalis pedis posterior tibial. Can flex and extend her toes. She has an abrasion on the anterior knee. No hip pain with internal/external rotation. No left lower extremity, upper extremity or spine pain. X-rays demonstrated comminuted distal tib-fib fracture. IMPRESSION: Comminuted distal tib-fib fracture closed acute right. PLAN: With her blood sugars being 390, she is at very high risk for infection and therefore open surgery at this time is very risky. We will place an external fixture when available in the morning, wait for sugars to normalize and then proceed with definitive fracture fixation. Informed consent was done discussing the risks, benefits, alternatives and complications to the posterior procedure, including the risk of , amputation, heart attack, stroke, infection, blood clots, bleeding, nerve root injury and a host of other potential medical and surgical complications. No guarantees were offered or applied. She voiced understanding and would like to proceed. Job ID: [id number] Dictated Date: 11/25/2016 18:02:41 Garnett Mechanic Date: 11/27/2016 09:20:34/hernan
--- NOTE | 2016-11-27 09:35 | Discharge Inst-Simple/Standard ---
Discharge Inst-Standard Discharge Medications New, Converted or Re-Newed RX: RX Given to Pt/Family Patient Instructions/Follow Up Plan of Care/Instructions/FU: Strict Non Weight bearing Right LE Ambulation with walker at all times Keep wound covered in bin wrap and dry Follow up in two weeks with Dr. Matos Schedule CT scan at [facility] prior to follow up Activity as Tolerated: Yes (with a walker at all times) Discharge Diet: No Restrictions, ADA Diet Planned Outpatient Orders/Ref. Follow up with Dr. Matos in 2 weeks PAOLA MCNAMARA Nov 27, 2016 09:35
--- NOTE | 2016-11-27 09:42 | Progress Note-Hospitalist ---
Progress Note HPI/CC on Admission CC: Medical management following right tib-fib fracture repair uncomplicated per Dr Santillan HPI: This is a 55yoWF clinic patient of Dr Avilez in [place], [place] who was fixing up a house in [place] getting it ready to be sold when she feel through the boards on the porch and sustained a right tibia-fibula fracture. She had an uncomplicated surgery this morning and currently she is experiencing pain. Her family is at the bedside. She checks her sugar daily at home and I have reconciled all of her home meds and restarted most of them and added accuchecks. 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 Progress Notes/Assess & Plan Date Seen 11/27/16 Time Seen by Provider: 09:45 Admission Dx/Process Assessment: Acute right tibia-fibula fracture s/p uncomplicated repair per Dr Santillan DM Asthma HTN Diagonsis/Assessment & Plan Pt ready to go home but having a lot of pain Bowel regimen discussed. HH orders completed Pain meds given by ortho DC meds reviewed AFVSS, in pain, O x 3 RRR, CTAB No edema Assessment: Acute right tibia-fibula fracture s/p uncomplicated repair per Dr Santillan POD # 1 DM Asthma HTN Plan: [place] SHOLA Ellington DO Nov 27, 2016 09:42
--- NOTE | 2016-11-27 09:45 | OPERATIVE REPORT ---
PROCEDURE PHYSICIAN: MYRNA PEREZ DATE OF PROCEDURE: 11/25/2016 PREOPERATIVE DIAGNOSIS: Acute closed comminuted tib-fib fracture far distal tibia fibula right. POSTOPERATIVE DIAGNOSIS: Acute closed comminuted tib-fib fracture far distal tibia fibula right. PROCEDURE: Closed reduction and external fixation with delta frame. SURGEON: Jacque. BUSINESS UNIT LEADER: CHRISTIAN Delgado. The plumber's assistant, Amos CHRISTIAN Rogers was medically necessary for the procedure assisting the surgeon as an extra set of hands to facilitate exposure, hold reduction with placement and adjustment of the external fixture. ANESTHESIA: GETA. ESTIMATED BLOOD LOSS: Less than 50. FLUIDS: 650 TOURNIQUET TIME: 22 minutes. CONDITION FOLLOWING PROCEDURE: Stable. COMPLICATIONS: None. START TIME: 8:30 END TIME: 8:56 COMPONENTS PLACED: Synthes large external fixator with two 5 mm Schanz screws in the tibia and a 5 mm calcaneal pin with 2 carbon fiber rods and the necessary pin to bar connectors. PROCEDURE: Ms. Rubi was taken to the operating room and properly identified. General endotracheal anesthesia was administered and the right lower extremity was sterilely prepped and draped in normal fashion for surgery. The 5 mm chance pin was placed in the proximal tibia making a longitudinal stab incision developing down through the subcutaneous tissue to the anterior medial surface of the tibia advancing the pin bicortically. The guide for the second pin was then placed over the first, starting position for the pin identified. Skin incision made again, developed down to the bone with the hemostat, advancing the guide to the bone, placing the second pin bicortically. The pin to pin connector was then placed and tightened into position. Working from medial to lateral and oblique calcaneal skin incision was made with care to stay posterior and distal to the neurovascular bundle. This again was advanced to the bone with the hemostat. The pin placed against the bone and advanced to the subcutaneous surface laterally, skin knife utilized to open the skin over the tip of the pin and the pin was advanced through the calcaneus. The pin to bar connectors were then placed after confirming position on image intensification. The fracture was reduced and held while the external fixture was tightened into place. Image intensification pictures of the fracture were identified. Adjustments to the reduction were performed, loosening and retightening the external fixture until we were satisfied with position. Once satisfied, definitive tightening was performed. The pin caps were placed over the calcaneal pin. The Schanz pins in the proximal tibia were shortened and caps placed over them. Betadine soaked 4 x 4's were cut and placed over the pin tracks that were released to make sure there was no tension on the skin. Additional 4 x 4's, ABDs, sterile cast padding, and an JARON was then applied and the patient was awakened, extubated and returned to the recovery room in stable condition. No complications. Job ID: [id number] Dictated Date: 11/26/2016 09:32:39 Timber Cutter Date: 11/27/2016 09:34:22 / hernan
--- NOTE | 2016-11-27 09:55 | Physical Therapy Evaluation ---
PT Evaluation-General Medical Diagnosis Admission Date Nov 25, 2016 at 17:44 Medical Diagnosis: right tib/fib fracture Onset Date: Nov 25, 2016 Therapy Diagnosis Therapy Diagnosis: debility Height/Weight Height (Feet): 5 Height (Inches): 2.00 Weight (Pounds): 152 Weight (Ounces): 0.0 Precautions Precautions/Isolations: Fall Prevention, Standard Precautions, Pressure Ulcer Weight Bear Status Weight Bearing Restriction: Non Weight Bearing Location Restriction: R LE Comments Patient has an exfix for 2 wks before surgery to permanently repair fractures Medical History Pertinent Medical History: CVA, DM Additional Medical History 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 Has had oral pain medication. Pain Numeric Pain Scale: 10-Worst Possible Pain Location: Right Location Body Site: Ankle Pain Description: Pressure, Acute, Throbbing, Sharp Objective Patient Orientation: Normal For Age Problem Solving: Good ROM/Strength ROM Lower Extremities left LE WNL right LE NT Strenght Lower Extremities left LE WNL right LE NT Integumentary/Posture Integumentary refer to nursing notes Bowel Incontinence: No Bladder Incontinence: No Posture WNL Neuromuscular (Tone, Coordination, Reflexes) grossly intact Sensory Vision: Functional Hearing: Functional Sensation Right Lower Extremit: Intact Sensation Left Lower Extremity: Intact Transfers Functional [employer] Measure 0=Not Assessed/NA 4=Minimal Assistance 1=Total Assistance 5=Supervision or Setup 2=Maximal Assistance 6=Modified [employer] 3=Moderate Assistance 7=Complete [employer] Transfers (B, C, W/C) (FIM): 5 Scootin Rollin Supine to/from Sit: 5 Sit to/from Stand: 5 Gait Mode of Locomotion: Walk Anticipated Mode of Locomotion: Walk Gait (FIM): 1 Distance (FIM): 1=up to 49 ft Distance: 25' x 2 Gait Level of Assist: 4 Gait Persons Needed: 1 Gait Assistive Device: FWW Comments/Gait Description NWB right LE some difficulty due to external fixator touching FWW due to right LE placement; patient is able to reposition during ambulation without difficulty Balance Sitting Static: Normal Sitting Dynamic: Normal Standing Static: Normal Standing Dynamic: Normal Assessment/Needs 55 y.o. female, NWB right ankle with external fixator, tolerated gait training with FWW to allow safe return to home with family on this date. Patient reports she feels comfortable with FWW use. Rehab Potential: Good PT Plan Treatment/Plan Treatment Plan: Discontinue PT, goals met Treatment Plan: Gait Treatment Duration: Nov 27, 2016 Frequency: Daily Estimated Hrs Per Day: .5 hour per day Patient and/or Family Agrees t: Yes Safety Risks/Education Patient Education: Gait Training, Steps Teaching Recipient: Patient Teaching Methods: Demonstration, Discussion Response to Teaching: Verbalize Understanding, Return Demonstration Discharge Recommendations Therapy D/C Recommendations: Home w/ Family Support Equpiment Recommendations-D/C: Front Wheeled Walker Time/GCodes Time In: 905 Time Out: 930 Total Billed Treatment Time: 25 Total Billed Treatment 1 visit EVModC 25 min G Codes Necessary: RICKEY Greenfield PT Nov 27, 2016 09:55
--- NOTE | 2016-11-27 10:11 | D/C HH Face to Face Order ---
D/C Face to Face Orders Instructions for Patient Patient Instructions/FollowUp: Maintain appt with Dr Matos as arranged by Dr Santillan Physician to follow Patient: Dr Matos Discharge Diet for Home: ADA Diet Patient Problems: Right tibia-fibula fracture DM HTN Patient Data-Allergies,Ht & Wt Patient Allergies: Coded Allergies: codeine (Verified Allergy, Unknown, 11/25/16) erythromycin base (Verified Allergy, Unknown, 11/25/16) Height (Feet): 5 Height (Inches): 2.00 Weight (Pounds): 152 Weight (Ounces): 0.0 Home Health Need/Face to Face Date of Face to Face: Nov 27, 2016 Clinical Findings: Non or partial weight bearing, Pain with ambulation I have seen Pt [id number]: Yes Discharged To: Home Diagnosis/Conditions: Right tibia-fibula fracture DM HTN Problems/Diagnosis/Condition: Patient is Homebound due to: Erwin fall risk due to instabilty, Non-weight bearing, Pain w/ambulation Homebound Status Due to the above stated illness, injury or surgical procedure (medical condition or diagnosis) and associated clinical findings, the patient is homebound because of his/her inability to leave home except with aid of a supportive device and/or person AND leaving the home requires a considerable and taxing effort or is medically contraindicated. Pt req the following assistanc: Aid of another person, Walker Home Health Nursing Orders Home Health Services Order: Nursing Services, Medical Appointment Scheduler-Evaluate & Treat, Physical Therapy-Evaluate & Treat Home Health Infusion Therapy Line Type: Peripheral IV Site Location: Hand Therapy Orders Therapy Specific Orders: Eval assistive deivces Certify Stmt I certify that this patient is under my care and that I, a nurse practitioner or a physician; a vector control assistant working with me, had a face to face encounter that - meets the physician face to face encounter requirements with this patient as dated. SHOLA BEARD DO Nov 27, 2016 10:11
[2016-11-27 12:00] VITALS: BP 128/60
[2016-11-27 13:10] VITALS: BP 128/60
--- NOTE | 2016-11-27 13:22 | Diagnostic Imaging Report ---
PROCEDURE: CT right lower extremity without contrast. TECHNIQUE: Axially acquired CT was obtained through the right lower extremity without intravenous contrast. Coronal and sagittal reformations were also performed. INDICATION: Fracture. FINDINGS: There are no previous CT examinations available for comparison. The plain film examination of the right tibia and fibula performed on 11/25/2016 noted comminuted displaced fractures of the distal tibia and fibula. There was medial angulation of the fracture fragments at the fracture site. On this exam, the comminuted fracture of the distal tibia and fibula are again evident. The main fracture fragments do appear to be in much better alignment and there is virtually no angulation of the main fracture fragments. As noted on the fluoroscopic exam of 11/26/2016, there are external fixation devices involving the calcaneus and the tibia. These seem to be in good position. There is generalized soft tissue edema about the fractured tibia and fibula. There is no mass or abscess visualized, however. No other abnormality is identified. IMPRESSION: There are severely comminuted fractures of the distal tibia and fibula with external fixation devices in place. The alignment of the main fracture fragments has improved since the prior exam and the main fracture fragments now seem near anatomic in alignment. Dictated by: Dictated on workstation # [id number]
[2016-11-28] MEDS ORDERED: MILK OF MAGNESIA 400 MG/5 ML 30 ML UDC PO PRN (08:00)
[2016-11-28] MEDS ORDERED: BISACODYL 10 MG SUPP (DULCOLAX) PR PRN (09:15)
== END 2016-11-27 15:17 | disposition home health service (06) | DRG 494 ==
LOC: ER 16:32 → 4TH 17:44 → ENPENDDIS 11-27 13:00
PROVIDERS: ADMIT Orthopaedic Surgery; ATTEND Orthopaedic Surgery
PROC: 0QSG35Z Reposition Right Tibia with External Fixation Device, Percutaneous Approach (ICD-10-PCS; principal; 2016-11-25)
DX: S82.301A Unspecified fracture of lower end of right tibia, initial encounter for closed fracture (principal); S82.831A Other fracture of upper and lower end of right fibula, initial encounter for closed fracture; E11.9 Type 2 diabetes mellitus without complications; I10 Essential (primary) hypertension; E78.5 Hyperlipidemia, unspecified; J45.909 Unspecified asthma, uncomplicated; Z86.73 Personal history of transient ischemic attack (TIA), and cerebral infarction without residual deficits; W13.3XXA Fall through floor, initial encounter; K21.9 Gastro-esophageal reflux disease without esophagitis; Y92.018 Other place in single-family (private) house as the place of occurrence of the external cause
CPT/HCPCS: 29515; 36415; 73590; 73700; 80048; 80053; 82962; 85014; 85018; 85025; 87081; 94640; 94664; 94760; 96374; 96375; 96376